=== PATIENT | male | born 1995 | race Two or more races ===

== ENCOUNTER → 2021-09-01 14:37 | Outpatient (BNVA) | payer SELFPAY | PROVIDERS: Visit Provider Physician Assistant Medical | DX: Z02.1 Encounter for pre-employment examination (principal) ==

== ENCOUNTER → 2023-01-12 08:47 | Outpatient (BNVA) | payer SELFPAY | PROVIDERS: Visit Provider Internal Medicine | DX: Z02.1 Encounter for pre-employment examination (principal) ==